=== PATIENT | female | born 1995 | race African-American/Black ===

== ENCOUNTER 2019-05-03 17:29 | Emergency (ER) | payer MEDICAID ==
[~2019-05-03] VITALS: Ht 170.2 cm; Wt 52.6 kg
[2019-05-03 18:08] VITALS: BP_SYST 93
--- NOTE | 2019-05-03 18:08 | NUR ---
Patient arrived in the ED c/o bodyaches, cough, chills, fevers (Tmax 103F) since last night - Taking Theraflu for it. Denied any nausea, vomiting or diarrhea. Patient is a&o x4, respirations even and unlabored, ambulating with a steady gait and speaking in full sentences. VS WNL. Informed of wait time. Sent back to the waiting room and instructed to notify ED staff for any changes in condition or worsening of symptoms while waiting to be seen by a provider. Patient verbalized understanding.
--- NOTE | 2019-05-03 20:30 | NUR ---
Pt c/o chills, H/A, fever, and cough since 0 last night. Pt states "I feel like I have the flu." Tmax at home was 103, took Theraflue at 0800 this AM.
--- NOTE | 2019-05-03 20:30 | NUR ---
Placed in room 1 . Placed on media monitor, blood pressure machine and pulse oximeter. To gown for exam. Side rails up. Report given to SUSANA LA.
--- NOTE | 2019-05-03 20:45 | NUR ---
Dr. Knowles at bedside.
[2019-05-03] MEDS ORDERED: PIPERACILLIN/TAZO 3.375 GM in NS 50 ML IV ONE (21:00)
[2019-05-03] MEDS ORDERED: ACETAMINOPHEN 325 MG TABLET PO ONE (21:00)
[2019-05-03] MEDS ORDERED: NACL 0.9% 1,000 ML IV ONE (21:00)
--- NOTE | 2019-05-03 21:00 | NUR ---
Specimen collected and sent to lab for Influenza.
--- NOTE | 2019-05-03 21:05 | NUR ---
# 20 gauge angiocath placed to RAC. Use of asceptic technique. Opsite placed over site. Blood return noted. Blood for lab drawn from site. Flushed with 10 cc of normal saline. No evidence of infiltration noted. Patient tolerated well.
[2019-05-03 21:16] LABS: BASOPHILS % (AUTO) 0.5 % (0.0-2.0); EOSINOPHILS % (AUTO) 0.3 % (0.0-4.0); HEMATOCRIT 38.9 % (36-48); HEMOGLOBIN 13.1 g/dL (12.0-16.0); LYMPHOCYTES # (AUTO) 0.6 K/uL (1.0-5.5); LYMPHOCYTES % (AUTO) 15.5 % (20.5-51.5); MEAN CORPUSCULAR HEMOGLOBIN 31 pg (27-31); MEAN CORPUSCULAR HGB CONC 34 % (32-36); MEAN CORPUSCULAR VOLUME 92 fL (79.0-98.0); MONOCYTES # (AUTO) 0.4 K/uL (0.0-1.0); MONOCYTES % (AUTO) 9.1 % (1.7-9.3); NEUTROPHILS # (AUTO) 3.1 K/uL (1.8-7.7); NEUTROPHILS % (AUTO) 74.6 % (40.0-70.0); PLATELET COUNT (AUTO) 208 K/uL (130-430); RED BLOOD CELL COUNT(AUTO) 4.22 MIL/uL (4.2-6.2); RED CELL DISTRIBUTION WIDTH 13.1 % (9.0-15.0); WHITE BLOOD COUNT (AUTO) 4.2 K/uL (4.8-10.8)
[2019-05-03 21:28] LABS: BILIRUBIN,URINE NEGATIVE (NEGATIVE); BLOOD, URINE NEGATIVE (NEGATIVE); CLARITY/URINE CLEAR (CLEAR); COLOR,URINE YELLOW (YELLOW); GLUCOSE,URINE NEGATIVE (NEGATIVE); KETONES,URINE NEGATIVE (NEGATIVE); LEUKOCYTE ESTERASE ,URINE NEGATIVE (NEGATIVE); NITRITE, URINE NEGATIVE (NEGATIVE); PH,URINE 7.5 (5.0-8.0); PROTEIN URINE NEGATIVE (NEGATIVE); UROBILINOGEN,URINE 0.2 (0.2-1.0)
[2019-05-03 21:38] LABS: CALCIUM 8.6 mg/dL (8.4-11.0); CREATININE 0.8 mg/dL (0.55-1.30); POTASSIUM 3.8 mmol/L (3.5-5.1)
[2019-05-03 21:43] LABS: ALBUMIN 4.3 g/dL (3.4-4.8); TOTAL BILIRUBIN 0.3 mg/dL (0.0-1.0)
[2019-05-03] MEDS ORDERED: PIPERACILLIN/TAZOBACTAM 3.375 GM/VIAL (ZOSYN) IV ONE (21:43)
[2019-05-03] MEDS ORDERED: OSELTAMIVIR PHOSPHATE 75 MG CAPSULE PO ONE (22:00)
--- NOTE | 2019-05-03 22:14 | NUR ---
Temp 101.4. No needs verbalized at this time.
--- NOTE | 2019-05-03 22:27 | NUR ---
Temp 101. Dr. Knowles notified. Pt verbalizes improvement in pain and no needs verbalized at this time.
[2019-05-03] MEDS ORDERED: IBUPROFEN 600 MG TABLET PO ONE (22:30)
--- NOTE | 2019-05-03 22:48 | NUR ---
Temp 99.8. Dr. Knowles notified. Pt to be discharged home.
--- NOTE | 2019-05-03 23:10 | NUR ---
Patient given written and verbal discharge instructions and verbalizes understanding. ER MD discussed with patient the results and treatment provided. Patient in stable condition. ID arm band removed. IV catheter removed intact and dressing applied, no active bleeding. Rx of MOTRIN,TYLENOL,TAMIFLU given. Patient educated on pain management and to follow up with PMD. Pain Scale 0/10. Opportunity for questions provided and answered. Medication side effect fact sheet provided.
[2019-05-03 23:11] VITALS: BP_SYST 101
== END 2019-05-03 23:11 | disposition home or self-care (01) ==
LOC: SED 17:29
DX: J11.1 Influenza due to unidentified influenza virus with other respiratory manifestations (principal)
CPT/HCPCS: 36415; 71045; 80053; 81003; 81025; 83605; 85025; 86710; 87040; 93005; 96365; 99284; G9035; J2543; J7030